=== PATIENT | female | born 1990 | race Two or more races ===

== ENCOUNTER 2018-03-17 15:58 | Outpatient (CLI) | payer OTHER | END 2018-03-17 17:10 | disposition home or self-care (01) | LOC: DCC 15:58 | DX: H70.90 Unspecified mastoiditis, unspecified ear (principal); R50.9 Fever, unspecified; H70.001 Acute mastoiditis without complications, right ear; M83.9 Adult osteomalacia, unspecified; G93.89 Other specified disorders of brain; G40.909 Epilepsy, unspecified, not intractable, without status epilepticus; M41.9 Scoliosis, unspecified | CPT/HCPCS: G0463 ==

== ENCOUNTER 2018-04-15 15:23 | Outpatient (CLI) | payer OTHER | END 2018-04-15 15:44 | disposition home or self-care (01) | LOC: DCC 15:23 | DX: G40.909 Epilepsy, unspecified, not intractable, without status epilepticus (principal); G80.9 Cerebral palsy, unspecified; E87.0 Hyperosmolality and hypernatremia | CPT/HCPCS: G0463 ==

== ENCOUNTER 2018-04-22 14:07 | Outpatient (CLI) | payer OTHER | END 2018-04-22 16:08 | disposition home or self-care (01) | LOC: DCC 14:07 | DX: A41.9 Sepsis, unspecified organism (principal); G40.909 Epilepsy, unspecified, not intractable, without status epilepticus; G80.9 Cerebral palsy, unspecified | CPT/HCPCS: G0463 ==